=== PATIENT | female | born 2000 | race Caucasian/White ===

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

== ENCOUNTER 2019-01-24 09:40 | Emergency (ER) | payer OTHER, MEDICAID ==
[2019-01-24] MEDS ORDERED: Magnesium Citrate Solution 296 ML Bottle PO ONE (09:55)
[2019-01-24] MEDS ORDERED: Bisacodyl 5 MG Tab PO ONE (09:55)
--- NOTE | 2019-01-24 10:01 | EDM.PDOC ---
ED HPI GENERAL MEDICAL PROBLEM - General Chief Complaint: General Stated Complaint: constipation Time Seen by Provider: 01/24/19 09:48 Source of Information: Reports: Patient, Family History Limitations: Reports: No Limitations - History of Present Illness INITIAL COMMENTS - FREE TEXT/NARRATIVE: in with c/o being constipated x 1 week, has mild abd cramping, no back pain, no fever or chills, has had the same sx in the past, no uti sx, no other sx Onset: Gradual Duration: Week(s): (1 week) Location: Reports: Abdomen Quality: Reports: Other (cramping) Severity: Mild Improves with: Reports: None Worsens with: Reports: None Associated Symptoms: Reports: No Other Symptoms. Denies: Chest Pain, Cough, Fever/Chills, Nausea/Vomiting, Shortness of Breath, Weakness Treatments ASSESSMENT COORDINATOR: Reports: Other (see below) (none) Abdominal Pain Score (Numeric/FACES): 6 - Related Data Allergies Allergy/AdvReac Type Severity Reaction Status Date / Time cat dander Allergy Other Verified 01/24/19 09:46 dog dander Allergy Other Verified 01/24/19 09:46 Home Meds: Home Meds Loratadine/Pseudoephedrine [Claritin-D 12 Hour] 1 tab PO DAILY 12/26/17 [History ] Control Patch 1 patch TOP WEEKLY 03/29/18 [History] Amitriptyline [Elavil] 25 mg PO DAILY 01/24/19 [History] Cholecalciferol (Vitamin D3) [Vitamin D3] 50 mcg PO DAILY 01/24/19 [History] FLUoxetine HCl [Fluoxetine] 10 mg PO DAILY 01/24/19 [History] LORazepam 0.5 mg PO ASDIRECTED PRN 01/24/19 [History] Mirtazapine 15 mg PO DAILY 01/24/19 [History] Past Medical History HEENT History: Reports: Other (See Below) Other HEENT History: eye surgery as a child Psychiatric History: Reports: Anxiety Other Psychiatric History: Pt states that she is currently being evaluated and is possibly bipolar and schizophrenic. - Past Surgical History GI Surgical History: Reports: Cholecystectomy Social & Family History - Family History Family Medical History: Noncontributory - Caffeine Use Caffeine Use: Reports: None ED ROS GENERAL - Review of Systems Review Of Systems: See Below Constitutional: Reports: No Symptoms. Denies: Fever, Chills HEENT: Reports: No Symptoms Respiratory: Reports: No Symptoms. Denies: Shortness of Breath Cardiovascular: Reports: No Symptoms. Denies: Chest Pain Endocrine: Reports: No Symptoms GI/Abdominal: Reports: Constipation, Flatus. Denies: Abdominal Pain, Difficulty Swallowing, Distension, Nausea, Vomiting : Reports: No Symptoms Musculoskeletal: Reports: No Symptoms. Denies: Neck Pain, Back Pain Skin: Reports: No Symptoms Neurological: Reports: No Symptoms Psychiatric: Reports: No Symptoms ED EXAM, GENERAL - Physical Exam Exam: See Below Exam Limited By: No Limitations General Appearance: Alert, WD/WN, No Apparent Distress Ears: Normal External Exam Nose: Normal Inspection Throat/Mouth: Normal Inspection, Normal Lips, Normal Voice, No Airway Compromise Head: Atraumatic, Normocephalic Neck: Normal Inspection, Supple, Non-Tender, Full Range of Motion Respiratory/Chest: No Respiratory Distress, Lungs Clear, Normal Breath Sounds Cardiovascular: Normal Peripheral Pulses, Regular Rate, Rhythm Peripheral Pulses: 2+: Radial (L) GI/Abdominal: Normal Bowel Sounds, Soft, Non-Tender. No: Distended, Guarding, Rigid, Rebound, Tender, Mass Back Exam: Normal Inspection, Full Range of Motion Extremities: Normal Inspection, Normal Range of Motion, Non-Tender, Normal Capillary Refill Neurological: Alert, Oriented, Normal Cognition, Normal Gait, No Motor/Sensory Deficits Psychiatric: Normal Affect, Normal Mood Skin Exam: Warm, Dry, Intact, Normal Color Course - Vital Signs Last Recorded V/S: Last Vital Signs Temp 36.4 C 01/24/19 09:41 Pulse 89 01/24/19 09:41 Resp 16 01/24/19 09:41 BP 139/93 H 01/24/19 09:41 Pulse Ox 100 01/24/19 09:41 - Orders/Labs/Meds Meds: Medications Discontinued Medications Generic Name Dose Route Start Last Admin Trade Name Gibranq PRN Reason Stop Dose Admin Bisacodyl 10 mg 01/24/19 09:55 01/24/19 10:10 Dulcolax PO 01/24/19 09:56 10 mg ONETIME ONE Administration Magnesium Citrate 296 ml 01/24/19 09:55 01/24/19 10:10 Citrate Of Magnesia PO 01/24/19 09:56 296 ml ONETIME ONE Administration Departure - Departure Time of Disposition: 10:00 Disposition: Home, Self-Care 01 Condition: Good Clinical Impression: Constipation Qualifiers: Constipation type: unspecified constipation type Qualified Code(s): K59.00 - Constipation, unspecified - Discharge Information *PRESCRIPTION DRUG MONITORING PROGRAM REVIEWED*: Not Applicable *COPY OF PRESCRIPTION DRUG MONITORING REPORT IN PATIENT JACQUIE: Not Applicable Instructions: Constipation, Adult Forms: ED Department Discharge Additional Instructions: follow up with your family doctor this week, call in am for an appointment time return to the ED as needed - Problem List & Annotations (1) Constipation SNOMED Code(s): 04402597 Code(s): K59.00 - CONSTIPATION, UNSPECIFIED Status: Acute Priority: Medium Qualifiers: Constipation type: unspecified constipation type Qualified Code(s): K59.00 - Constipation, unspecified - Problem List Review Problem List Initiated/Reviewed/Updated: Yes - Assessment/Plan Plan: as above
== END 2019-01-24 10:18 | disposition home or self-care (01) ==
LOC: CC.ED 09:40
DX: K59.00 Constipation, unspecified (principal); F41.9 Anxiety disorder, unspecified; Z90.49 Acquired absence of other specified parts of digestive tract; Z91.048 Other nonmedicinal substance allergy status; Z79.899 Other long term (current) drug therapy
CPT/HCPCS: 99283; A9270-GY

== ENCOUNTER 2019-04-18 20:14 | Emergency (ER) | payer OTHER, MEDICAID ==
[2019-04-18 20:19] VITALS: BP 137/63; PULSE 118
--- NOTE | 2019-04-18 20:39 | EDM.PDOC ---
ED HPI GENERAL MEDICAL PROBLEM - General Chief Complaint: Fever Stated Complaint: fever, aches, rash Time Seen by Provider: 04/18/19 20:26 Source of Information: Reports: Patient, Family History Limitations: Reports: No Limitations - History of Present Illness INITIAL COMMENTS - FREE TEXT/NARRATIVE: in with c/o fever and chills with abd cramping and nausea, no vomiting or diarrhea, no neck/back pain or stiffness, no flank pain, has had fever off and on, has been exposed top the flu, no ear pain, has a runny nose, no sore throat Onset: Gradual Duration: Day(s): (sx x 3-4 days, has been recently txed for uti with bactrim and is feeling better from that stand point ) Quality: Reports: Ache Severity: Mild Improves with: Reports: None Worsens with: Reports: None Associated Symptoms: Reports: Fever/Chills, Nausea/Vomiting (nausea, no vomiting ). Denies: Confusion, Chest Pain, Cough, Headaches, Rash, Shortness of Breath, Weakness Treatments METAL AND PLASTIC HEATER: Reports: NSAIDS Generalized Pain Score (Numeric/FACES): 5 - Related Data Allergies Allergy/AdvReac Type Severity Reaction Status Date / Time cat dander Allergy Other Verified 04/18/19 20:19 dog dander Allergy Other Verified 04/18/19 20:19 Home Meds: Home Meds Loratadine/Pseudoephedrine [Claritin-D 12 Hour] 1 tab PO DAILY 12/26/17 [History ] Control Patch 1 patch TOP WEEKLY 03/29/18 [History] Amitriptyline [Elavil] 25 mg PO DAILY 01/24/19 [History] Cholecalciferol (Vitamin D3) [Vitamin D3] 50 mcg PO DAILY 01/24/19 [History] FLUoxetine HCl [Fluoxetine] 10 mg PO DAILY 01/24/19 [History] LORazepam 0.5 mg PO ASDIRECTED PRN 01/24/19 [History] Past Medical History HEENT History: Reports: Other (See Below) Other HEENT History: eye surgery as a child Psychiatric History: Reports: Anxiety Other Psychiatric History: Pt states that she is currently being evaluated and is possibly bipolar and schizophrenic. - Past Surgical History GI Surgical History: Reports: Cholecystectomy Social & Family History - Family History Family Medical History: Noncontributory - Tobacco Use Smoking Status *Q: Never Smoker - Caffeine Use Caffeine Use: Reports: None - Recreational Drug Use Recreational Drug Use: No ED ROS GENERAL - Review of Systems Review Of Systems: See Below Constitutional: Reports: Fever, Chills HEENT: Reports: No Symptoms. Denies: Ear Pain, Nose Pain, Throat Pain Respiratory: Reports: No Symptoms. Denies: Shortness of Breath, Cough Cardiovascular: Reports: No Symptoms. Denies: Chest Pain Endocrine: Reports: No Symptoms GI/Abdominal: Reports: Nausea. Denies: Abdominal Pain, Vomiting : Reports: No Symptoms Musculoskeletal: Reports: No Symptoms, Other (myalgia, generalized). Denies: Neck Pain, Back Pain Skin: Reports: No Symptoms. Denies: Bruising, Rash, Erythema Neurological: Reports: No Symptoms. Denies: Confusion, Dizziness, Headache Psychiatric: Reports: No Symptoms ED EXAM, GENERAL - Physical Exam Exam: See Below Exam Limited By: No Limitations General Appearance: Alert, WD/WN, No Apparent Distress Ears: Normal External Exam, Normal Canal, Hearing Grossly Normal, Normal TMs Ear Exam: Bilateral Ear: Auricle Normal, Canal Normal, TM normal Nose: Normal Inspection, Normal Mucosa Throat/Mouth: Normal Inspection, Normal Oropharynx, Normal Voice, No Airway Compromise Head: Atraumatic, Normocephalic Neck: Normal Inspection, Supple, Non-Tender, Full Range of Motion Respiratory/Chest: No Respiratory Distress, Lungs Clear, Normal Breath Sounds, Chest Non-Tender Cardiovascular: Normal Peripheral Pulses, Regular Rate, Rhythm, No Murmur Peripheral Pulses: 2+: Radial (L), Radial (R) GI/Abdominal: Soft, Non-Tender Back Exam: Normal Inspection, Full Range of Motion. No: CVA Tenderness (L), CVA Tenderness (R) Extremities: Normal Inspection, Normal Range of Motion, Non-Tender, No Pedal Edema, Normal Capillary Refill Neurological: Alert, Oriented, Normal Cognition, Normal Gait, No Motor/Sensory Deficits Psychiatric: Normal Affect, Normal Mood Skin Exam: Warm, Dry, Intact, Normal Color, No Rash Course - Vital Signs Text/Narrative:: the pt was evaluated in the ED, I suspect she has the flu, her sx point towards influ B, it is too late for tamiflu, advised to increase fluids, tylenol and motrin as needed for fever and f/u with pcp this week, no work until no fever x 24 hours Last Recorded V/S: Last Vital Signs Temp 37.4 C 04/18/19 20:15 Pulse 118 H 04/18/19 20:15 Resp 20 04/18/19 20:15 BP 137/63 04/18/19 20:15 Pulse Ox 95 04/18/19 20:15 Departure - Departure Time of Disposition: 20:38 Disposition: Home, Self-Care 01 Condition: Good Clinical Impression: Influenza - Discharge Information *PRESCRIPTION DRUG MONITORING PROGRAM REVIEWED*: Not Applicable *COPY OF PRESCRIPTION DRUG MONITORING REPORT IN PATIENT JACQUIE: Not Applicable Instructions: Influenza, Adult, [id number] Forms: ED Department Discharge Additional Instructions: increase fluids alternate tylenol and motrin as needed for fever return to the ER as needed Sepsis Event Note - Evaluation Sepsis Screening Result: No Definite Risk - Focused Exam Vital Signs: Vital Signs Temp Pulse Resp BP Pulse Ox 04/18/19 20:15 37.4 C 118 H 20 137/63 95 Date Exam was Performed: 04/18/19 Time Exam was Performed: 20:41 - Problem List & Annotations (1) Influenza SNOMED Code(s): 2965921 Code(s): J11.1 - FLU DUE TO UNIDENTIFIED INFLUENZA VIRUS W OTH RESP MANIFEST Status: Acute Priority: Medium - Problem List Review Problem List Initiated/Reviewed/Updated: Yes - Assessment/Plan Plan: as above
== END 2019-04-18 20:50 | disposition home or self-care (01) ==
LOC: CC.ED 20:14
DX: J11.1 Influenza due to unidentified influenza virus with other respiratory manifestations (principal); F41.9 Anxiety disorder, unspecified; Z91.048 Other nonmedicinal substance allergy status; Z79.899 Other long term (current) drug therapy
CPT/HCPCS: 99283

== ENCOUNTER → 2019-10-15 | Day surgery (SDC) | payer OTHER, MEDICAID ==
[~2019-10-15] MED LIST: Ketamine 200 MG/20 ML MDV IV ONE; Phenylephrine 1% 10 MG/ML SDV IV ONE; Propofol 200 MG/20 ML SDV IV ONE; fentaNYL 100 MCG/2 ML SDV IV ONE
[2019-10-15] MEDS: Lactated Ringers 1,000 ML IV SCH (10:08)
--- NOTE | 2019-10-15 12:39 | OR ---
DATE OF OPERATION: 10/15/2019 PREOPERATIVE DIAGNOSIS: 1. ABDOMINAL PAIN. 2. DIARRHEA. POSTOPERATIVE DIAGNOSIS: 1. ABDOMINAL PAIN. 2. DIARRHEA. SURGEON: Alex Loving MD PROCEDURE: 1. EGD WITH BIOPSIES X2, JOCELYNE. 2. FULL-LENGTH COLONOSCOPY WITH RANDOM BIOPSIES X5. ANESTHESIA: MAC. COMPLICATIONS: None. SPECIMEN: 1. Duodenal bulb biopsy. 2. Antral biopsy. 3. Antral JOCELYNE. 4. Random colon biopsies x5 from terminal ileum to rectal vault. FINDINGS: 1. Full-length EGD. 2. Mild duodenitis, questionable etiology. 3. Normal full-length colonoscopy. RECOMMENDATIONS: Followup pending path reports. INDICATIONS: The patient has been having ongoing issues with abdominal pain and diarrhea. Workup including lab and x-ray thus far has been negative. We elected to proceed with endoscopy. DESCRIPTION OF PROCEDURE: The patient was prepped and draped, placed in the left lateral decubitus position. A lubricated Olympus gastroscope was inserted over a bit, advanced to cricopharyngeus area, and easily intubated into the esophagus. The esophageal lining was benign in its entire course. The Z-line was crisp and sharp at 40 cm. No hernia seen. No spontaneous reflux. The scope was advanced into the stomach, through the pylorus, and into the second portion of duodenum. This was benign. The duodenal bulb maybe showed a little bit of villous flattening and duodenitis. We did do a biopsy of that. The scope was brought back into the stomach and retroflexed. The upper fundus and cardia were completely unremarkable. Upon straightening, the rest of the fundus was benign. The antrum might have had a little erythema around the pylorus area. We did do a biopsy along with a CLOtest. Air was then suctioned from the stomach and the scope removed without complication. A lubricated Olympus colonoscope was then inserted and easily advanced to the cecum. Direct visualization of the ileocecal valve and appendiceal orifice was accomplished. The bowel prep was excellent. We were able to intubate into the terminal ileum through the ileocecal valve. No gross abnormalities were seen. We did do a biopsy of the terminal ileum. Throughout the rest of the colon, I found no polyps, masses, ulceration, or bleeding sites. No vascular abnormalities or obvious signs of colitis. There were no diverticula. I did do random biopsies including the terminal ileum, ascending colon, transverse colon, sigmoid and rectal vault. Retroflexion of the scope in the rectum showed no anal lesions. Air was suctioned and the scope was removed without complication. RAMYA/BLANCA /[id number]
== END ==
LOC: CC.SDS 09:35
PROVIDERS: ATTEND Family Medicine
DX: K29.50 Unspecified chronic gastritis without bleeding (principal); K29.80 Duodenitis without bleeding; R19.4 Change in bowel habit; F41.9 Anxiety disorder, unspecified; F32.9 Major depressive disorder, single episode, unspecified; Z11.59 Encounter for screening for other viral diseases; Z88.1 Allergy status to other antibiotic agents; Z79.899 Other long term (current) drug therapy
CPT/HCPCS: 36415; 43239; 45380; 84703; 87081; 87635; J2370; J2704; J3010; J7120; 00813; U0002

== ENCOUNTER 2021-05-03 20:42 | Emergency (ER) | payer OTHER, BC ==
[2021-05-03] MEDS: cloNIDine 0.1 MG Tab PO STA (21:16)
--- NOTE | 2021-05-03 21:37 | EDM.PDOC ---
ED HPI GENERAL MEDICAL PROBLEM - General Chief Complaint: General Stated Complaint: "arm muscles are tight" Time Seen by Provider: 05/03/21 21:04 Source of Information: Reports: Patient History Limitations: Reports: No Limitations - History of Present Illness INITIAL COMMENTS - FREE TEXT/NARRATIVE: Presents with arms held up to chest tightly. States took Flexeril prior to arri alan. Initially stated she cannot move her arms, them moved them and snapped them back rapidly towards chest. While distracted in conversation, she extended one arm and it remained extended without difficulty or noted spasms. Has psych hx, stated she is no longer seeing a psych provider. Onset: Sudden Onset Date: 05/03/21 Onset Time: 20:00 Duration: Constant Location: Reports: Upper Extremity, Left, Upper Extremity, Right Improves with: Reports: None Worsens with: Reports: None Associated Symptoms: Reports: No Other Symptoms Treatments [employer]: Reports: Other (see below) (flexeril) Other Treatments [employer]: muscle relaxant Bilateral Arm Pain Score (Numeric/FACES): 10 - Related Data Allergies Allergy/AdvReac Type Severity Reaction Status Date / Time cat dander Allergy Other Verified 05/03/21 20:43 dog dander Allergy Other Verified 05/03/21 20:43 sulfamethoxazole Allergy Itching Verified 05/03/21 20:43 [From Bactrim] trimethoprim [From Bactrim] Allergy Itching Verified 05/03/21 20:43 Home Meds: Home Meds Loratadine/Pseudoephedrine [Claritin-D 12 Hour] 1 tab PO DAILY 12/26/17 [History] Control Patch 1 patch TOP WEEKLY 03/29/18 [History] Acetaminophen [Tylenol Extra Strength] 500 mg PO Q6H PRN 10/13/19 [History] Ibuprofen [Advil] 400 mg PO Q6H PRN 10/13/19 [History] Cyclobenzaprine HCl 10 mg PO ASDIRECTED PRN 05/03/21 [History] Vilazodone HCl [Viibryd] 40 mg PO DAILY 05/03/21 [History] guanFACINE HCl [Guanfacine HCl ER] 4 mg PO DAILY 05/03/21 [History] Past Medical History HEENT History: Reports: Other (See Below) Other HEENT History: eye surgery as a child Musculoskeletal History: Reports: Other (See Below) Other Musculoskeletal History: patient reports she may have Tourette's Syndrome but "they are not sure." Reports history of "seizure like activity." Neurological History: Reports: Other (See Below) Other Neuro History: 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 reports she has Borderline Personality Disorder - Past Surgical History HEENT Surgical History: Reports: Eye Surgery GI Surgical History: Reports: Cholecystectomy Social & Family History - Family History Family Medical History: No Pertinent Family History - Caffeine Use Caffeine Use: Reports: None ED ROS GENERAL - Review of Systems Review Of Systems: Comprehensive ROS is negative, except as noted in HPI. ED EXAM, GENERAL - Physical Exam Exam: See Below Exam Limited By: No Limitations General Appearance: Alert, No Apparent Distress, Anxious Eye Exam: Bilateral Eye: EOMI, Normal Inspection Ears: Normal External Exam, Hearing Grossly Normal Nose: Normal Inspection, Normal Mucosa, No Blood Throat/Mouth: Normal Inspection, Normal Lips, Normal Gums, Normal Oropharynx, Normal Voice, No Airway Compromise Head: Atraumatic, Normocephalic Neck: Normal Inspection, Supple, Non-Tender, Full Range of Motion Respiratory/Chest: No Respiratory Distress, Lungs Clear, Normal Breath Sounds, No Accessory Muscle Use, Chest Non-Tender Cardiovascular: Normal Peripheral Pulses, Regular Rate, Rhythm, No Edema GI/Abdominal: Normal Bowel Sounds, Soft, Non-Tender, No Distention Back Exam: Normal Inspection, Full Range of Motion Extremities: Normal Inspection, Normal Range of Motion, Normal Capillary Refill, Other (Pulls arms to chest. Negative Chvostek's and Trousseau's signs.) Neurological: Alert, Oriented, Normal Cognition, Normal Gait, No Motor/Sensory Deficits Psychiatric: Anxious Skin Exam: Warm, Dry, Intact, Normal Color, No Rash Lymphatic: No Adenopathy Course - Vital Signs Last Recorded V/S: Last Vital Signs Temp 98.8 F 05/03/21 20:45 Pulse 112 H 05/03/21 20:45 Resp 16 05/03/21 20:45 BP 136/83 05/03/21 21:16 Pulse Ox 95 05/03/21 20:45 - Orders/Labs/Meds Meds: Medications Discontinued Medications Generic Name Dose Route Start Last Admin Trade Name Freq PRN Reason Stop Dose Admin Clonidine HCl 0.1 mg 05/03/21 21:12 05/03/21 21:16 Clonidine 0.1 Mg Tab PO 05/03/21 21:13 0.1 mg STAT STA Administration - Re-Assessments/Exams Free Text/Narrative Re-Assessment/Exam: 05/03/21 21:40 States that she is better now and is asking about being discharged. 05/03/21 21:43 Grandmother here. Will D/C home with her grandmother. 05/03/21 21:46 Moving arms freely without difficulty. Calmer. D/C to home. Departure - Departure Time of Disposition: 21:45 Disposition: Home, Self-Care 01 Condition: Good Clinical Impression: Psychiatric disorder - Discharge Information Additional Instructions: Follow up with Psychiatric Provider. Sepsis Event Note (ED) - Evaluation Sepsis Screening Result: No Definite Risk - Focused Exam Vital Signs: Vital Signs Temp Pulse Resp BP BP Pulse Ox 05/03/21 21:16 136/83 05/03/21 21:12 136/83 05/03/21 20:45 98.8 F 112 H 16 95 - Problem List & Annotations (1) Psychiatric disorder SNOMED Code(s): 12000747 Code(s): F99 - MENTAL DISORDER, NOT OTHERWISE SPECIFIED Status: Acute - Problem List Review Problem List Initiated/Reviewed/Updated: Yes
== END 2021-05-03 21:50 | disposition home or self-care (01) ==
LOC: CC.ED 20:42
DX: F28 Other psychotic disorder not due to a substance or known physiological condition (principal); Z88.1 Allergy status to other antibiotic agents; Z91.09 Other allergy status, other than to drugs and biological substances
CPT/HCPCS: 99283; A9270-GY

== ENCOUNTER 2024-07-22 09:52 | Emergency (ER) | payer MEDICAID, OTHER ==
[2024-07-22 10:30] LABS: BASOPHILS ABSOLUTE AUTO 0.06 10^3/uL (0.00-0.50); BASOPHILS PERCENT AUTO 0.7 % (0-1); EOSINOPHILS ABSOLUTE AUTO 0.13 10^3/uL (0.00-1.50); EOSINOPHILS PERCENT AUTO 1.6 % (0-6); HEMATOCRIT 44.8 % (37.0-47.0); HEMOGLOBIN 14.4 g/dL (12.0-16.0); IMMATURE GRAN ABSOLUTE AUTO 0.02 10^3/uL (0.00-0.49); IMMATURE GRAN PERCENT AUTO 0.2 % (0.0-4.9); LYMPHOCYTES ABSOLUTE AUTO 1.91 10^3/uL (0.60-5.00); LYMPHOCYTES PERCENT AUTO 23.2 % (24-44); MEAN CORPUSCULAR HEMOGLOBIN 27.3 pg (27.0-32.0); MEAN CORPUSCULAR HGB CONC 32.1 g/dL (32.0-36.0); MONOCYTES ABSOLUTE AUTO 0.44 10^3/uL (0.00-1.50); MONOCYTES PERCENT AUTO 5.3 % (0-10); NEUTROPHILS ABSOLUTE AUTO 5.68 x10^3/uL (1.80-8.00); PLATELET COUNT,PLT 262 10^3/uL (150-400); RED BLOOD CELL COUNT 5.27 x10^6/uL (4.00-5.50); WHITE BLOOD CELL COUNT,WBC 8.2 10^3/uL (4.0-11.0)
[2024-07-22 10:44] LABS: ALBUMIN 3.8 g/dL (3.4-5.0); BILIRUBIN TOTAL 0.5 mg/dL (0.0-1.0); C-REACTIVE PROTEIN 0.94 mg/dL (<=0.50); CALCIUM 9.3 mg/dL (8.4-10.1); EST CRCL DRUG DOSING (CG) 68.02 mL/min; POTASSIUM,K 4.1 mEq/L (3.5-5.0); PROTEIN TOTAL,TP 8.2 g/dL (6.4-8.2)
== END 2024-07-22 11:05 | disposition home or self-care (01) ==
LOC: CC.ED 09:52
DX: R11.2 Nausea with vomiting, unspecified (principal); R19.7 Diarrhea, unspecified; Z91.048 Other nonmedicinal substance allergy status; Z88.2 Allergy status to sulfonamides; Z79.899 Other long term (current) drug therapy; Z79.84 Long term (current) use of oral hypoglycemic drugs; Z87.891 Personal history of nicotine dependence
CPT/HCPCS: 36415; 80053; 85025; 86140; 99283; 99284